=== PATIENT | female | born 1960 ===

== ENCOUNTER → 2018-09-11 | Outpatient (CLI) | payer MEDICARE, OTHER ==
--- NOTE | 2018-09-11 16:08 | PCVCIMAG ---
APPROVED REPORT Study performed: 09/11/2018 14:51:57 EXAM: Comprehensive 2D, Doppler, and color-flow Echocardiogram Patient Location: Echo lab Room #: 3Status: routine BSA: 2.02 HR: 60 bpmBP: 132/60 mmHg Rhythm: NSR Other Information Study Quality: Adequate Risk Factors: Cardiac Risk Factors: HTN, Hyperlipidemia, DM Indications CAD S/P Renal Transplant (2015) 2D Dimensions IVSd: 10.46 (7-11mm)LVOT Diam: 20.00 (18-24mm) LVDd: 55.66 mm PWd: 8.76 (7-11mm)Ascending Ao: 29.73 (22-36mm) LVDs: 42.12 (25-40mm) Left Atrium: 51.93 (27-40mm) Aortic Root: 26.24 mm LV Single Plane 4CH: 69.82 % LV Single Plane 2CH: 65.49 % Biplane EF: 68.1 % Volumes Left Atrial Volume (Systole) Single Plane 4CH: 64.42 mLSingle Plane 2CH: 44.25 mL LA ESV Index: 27.00 mL/m2 Aortic Valve AoV Peak Renato.: 1.69 m/s AO Peak Gr.: 11.46 mmHgLVOT Max P.92 mmHg LVOT Max V: 0.99 m/s YONATAN Vmax: 1.77 cm2 Mitral Valve E/A Ratio: 1.6 MV Decel. Time: 269.15 ms MV E Max Renato.: 1.26 m/s MV A Renato.: 0.79 m/s IVRT: 69.20 ms TDI E/Lateral E': 15.75E/Medial E': 18.00 Medial E' Renato.: 0.07 m/s Lateral E' Renato.: 0.08 m/s Pulmonary Valve PV Peak Renato.: 1.26 m/sPV Peak Gr.: 6.37 mmHg Pulmonary Vein P Vein S: 0.72 m/sP Vein A: 0.18 m/s P Vein D: 0.74 m/sP Vein A Dur.: 100.3 msec P Vein S/D Ratio: 0.97 Tricuspid Valve TR Peak Renato.: 3.00 m/sRAP Estimate: 7.00 mmHg TR Peak Gr.: 35.98 mmHg PA Pressure: 43.00 mmHg Left Ventricle The left ventricle is normal size. There is normal LV segmental wall motion. There is normal left ventricular wall thickness. Left ventricular systolic function is normal. The left ventricular ejection fraction is within the normal range. LVEF is 65-70%. Grade II - pseudonormal filling dynamics. Right Ventricle The right ventricle is normal size. The right ventricular systolic function is normal. Atria The left atrium size is normal. Right atrium is dilated. Aortic Valve The aortic valve is normal in structure. Trace aortic regurgitation. There is no aortic valvular stenosis. Mitral Valve The mitral valve is normal in structure. Trace mitral regurgitation. No evidence of mitral valve stenosis. Tricuspid Valve The tricuspid valve is normal in structure. Mild tricuspid regurgitation. Pulmonary artery pressure is 43 mmHg. Pulmonic Valve The pulmonary valve is normal in structure. Trace pulmonic regurgitation. Great Vessels The aortic root is normal in size. IVC is normal in size and collapses >50% with inspiration. Pericardium There is no pericardial effusion. <Conclusion> The left ventricle is normal size. There is normal left ventricular wall thickness. Left ventricular systolic function is normal. The left ventricular ejection fraction is within the normal range. Grade II - pseudonormal filling dynamics. The right ventricle is normal size. The left atrium size is normal. Trace aortic regurgitation. Trace mitral regurgitation. Mild tricuspid regurgitation. Pulmonary artery pressure is 43 mmHg.
== END | disposition home or self-care (01) ==
LOC: PCVCIMAG 15:30
PROVIDERS: ATTEND Internal Medicine Cardiovascular Disease
DX: I25.10 Atherosclerotic heart disease of native coronary artery without angina pectoris (principal); I10 Essential (primary) hypertension; E78.00 Pure hypercholesterolemia, unspecified; R60.9 Edema, unspecified; I07.1 Rheumatic tricuspid insufficiency; Z79.4 Long term (current) use of insulin; Z87.891 Personal history of nicotine dependence
CPT/HCPCS: 93005; 93306; G0463